=== PATIENT | female | born 1970 | race Caucasian/White ===

== ENCOUNTER → 2016-08-02 | Day surgery (SDC) | payer OTHER ==
--- NOTE | 2016-07-30 10:23 | TH ---
cc: KATIUSKA WILCOX M.D. DATE 07/30/2016 PROCEDURE TO BE PERFORMED Removal/replacement of implants with the MX 400, style 410. We are also going to be removing a Port-A-Cath and rearrange the scar located on the lower abdomen. HISTORY OF PRESENT ILLNESS This is a pleasant 45-year-old female who back on May 21 underwent bilateral mastectomy with tissue e mail system administrator placement. She further underwent the expansion without further problems and she is ready for further replacement. PAST MEDICAL HISTORY Her past medical history is otherwise unremarkable other than having a hysterectomy. MEDICATIONS 1. Lorazepam 2. Vitamins 3. Aleve ALLERGIES PENICILLIN AND CODEINE. SOCIAL HISTORY Ex-smoker HABITS Benign. REVIEW OF SYSTEMS Unremarkable PHYSICAL EXAM CONSTITUTIONAL: General appearance. The patient is a well-developed she in no acute distress. Body habitus is within normal limits. There appear to be no deformities. Appears to have attention to grooming. HEENT: Eyes Conjunctivae and lids are within normal anatomical limits. The pupils are reactive to light and accommodation, size, and symmetry. There is no evidence of exudate, hemorrhage, or vessel change. Ears, mouth, nose, and throat The external inspection of the ears and nose fails to demonstrate any pathology, scars, lesions, or masses. Nasal mucosa, septum, and turbinates appear to be well hydrated as well as the lips and gums. No evidence of masses in the hypopharynx or submental area. RESPIRATORY: The patient shows no evidence of intercostal refractions. Otherwise, lungs are clear to auscultation without any abnormal sounds or rubs. CARDIOVASCULAR: The patient has a normal heart rate and rhythm. There is no evidence of noticed carotid bruits. Femoral pulses and pedal pulses in extremities are also within normal limits. GASTROINTESTINAL/ABDOMEN: Soft with no evidence of masses or tenderness. Unable to palpate the liver or spleen. No evidence of hernia. MUSCULOSKELETAL: Appears to be reasonable range of motion on the head, neck, spine, ribs, pelvis, right upper extremity, left upper extremity, right lower extremity, and left lower extremity. The muscle strength and tone appears to be equal and within accepted limits. SKIN: Well-healed tissue expanders, well placed Port-A-Cath and a small area of indentation in the hypogastric area. There are no rashes, lesions, or ulcers on the trunk, back, and extremities. NEUROLOGICAL: Examination is grossly normal. PSYCHIATRIC: The patient appears to have good orientation of time, place, and person. Does not appear to have any mood effects of depression, anxiety, or agitation. PLAN As above. MD FREEMAN Agudelo/CRISTINO /9:49 AM /10:15 AM
[~2016-08-02] MED LIST: ACETAMINOPHEN 1000 MG/100 ML VIAL IV ONE; ACETAMINOPHEN/HYDROcodone 325 MG/5 MG TAB ONE; BACITRACIN IM FOR SOLN 50,000 UNIT VIAL ONE; BUPIVACAINE/EPINEPHRINE 0.25% PF 30 ML VIAL ONE; GENTAMICIN SULFATE 80 MG/2 ML VIAL ONE; LACTATED RINGER'S 1000 ML INJ 1,000 ML ONE; LIDOCAINE 1%/EPINEPHrine 1:100,000 SOLN 30 ML VIAL ONE; MIDAZOLAM HCL 2 MG/2 ML VIAL ONE; ONDANSETRON HCL 4 MG/2 ML VIAL IV PUSH ONE; PROPOFOL 200 MG/20 ML AMP IV ONE; SODIUM CHLOR 0.9% 250 ML BAG IV ONE; SODIUM CHLORIDE 0.9% INJ 10 ML ONE; VANCOMYCIN 500 MG VIAL ONE
--- NOTE | 2016-08-02 09:07 | TN ---
cc: HERON SANCHEZ M.D. DATE OF SURGERY: 08/02/2016 PREOPERATIVE DIAGNOSIS History of breast cancer status post bilateral mastectomy and tissue expansion reconstruction. POSTOPERATIVE DIAGNOSIS History of breast cancer status post bilateral mastectomy and tissue expansion reconstruction. PROCEDURE Removal, replacement of implants with replacement with a Natrelle Cohesive gel, style 410 MX, volume 410 ccs, serial number of the right breast implant device [id number], and to the left [id number]. She also underwent the removal of Port-A-Cath device from the left subclavian vein, revision of suprapubic scar due to indentations and deformity which required a complex repair of approximately 3 cm. SURGEON Heron Sanchez MD ANESTHESIA LMA general plus a total of 60 ccs of 1% lidocaine with epinephrine. ESTIMATED BLOOD LOSS Minimal. COMPLICATIONS None. DRAINS None. PROCEDURE She was properly consented, marked, properly anesthetized. The skin was sterilized with Betadine solution. Local anesthetic was applied. Began our attention to the left infraclavicular area where the previous reservoir of the Port-A-Cath and incision was done utilizing 15 blade. I carefully found the catheter and it was properly teased out. The conduit was properly closed and the scar was folded on itself to minimize deformities. 2-0 Monocryl suture was utilized and a complex repair of 2-1/2 to 3 cm was carried out. Attention was directed to the suprapubic area where a 2 cm indented scar where the patient had the previous pelvic procedure through a laparoscopic approach indeed showed a significant indentation. I de-epithelialized the area, fold the dermis to itself to add some volume and performed a 3 cm complex repair in multiple layers utilizing 2-0 Monocryl suture. Finally attention was directed to the breast through previous inframammary incision, the trap door incision was carried out. The pocket was opened, the tissue biztalk software developer was deflated and removed. Irrigation with antibiotic solution was carried on the pocket. With this I proceeded and performed proper capsulotomies where needed, mostly superior and laterally. After assuring best pocket possible I proceeded and utilizing no-touch technique and isolation of the skin with Tegaderm. We proceeded and performed the introduction of the implant. With this I proceeded and performed the contralateral side in pretty much the same mode, assuring best symmetry possible. The patient was sat up and assuring best symmetry possible we proceeded and closed the wounds in multiple 2-0 Monocryl suture layers, on the capsule, dermis and subcu. Mastisol and Steri-Strips were applied on all the incisions and good viability of tissue was noted at the end of the case. The patient was awakened, extubated in the operating room, transferred back to postanesthesia care unit in stable condition. No complications were appreciated. The patient tolerated the procedure fairly well. MD FREEMAN Agudelo/GUSTAVO /8:35 AM /8:53 AM MTDD
== END | disposition home or self-care (01) ==
LOC: ESDC 06:15
PROVIDERS: ATTEND Plastic Surgery
DX: C50.911 Malignant neoplasm of unspecified site of right female breast (principal); C50.912 Malignant neoplasm of unspecified site of left female breast; Z90.13 Acquired absence of bilateral breasts and nipples
CPT/HCPCS: 00400; 11970; 13101; 36590; C1789; J0131; J1580; J2250; J2405; J3010; J3370; J7050; J7120